=== PATIENT | female | born 1950 | race Caucasian/White ===

== ENCOUNTER → 2017-06-09 | Outpatient (CLI) | payer MEDICARE, BC ==
--- NOTE | 2017-06-11 09:02 | MM ---
Reason for exam: screening (asymptomatic). Last mammogram was performed 1 year and 10 months ago. History: Patient is postmenopausal. Benign excisional biopsy of the right breast, February 26, 1999. Took estrogen for 3 years beginning at age 51. Physical Findings: A clinical breast exam by your physician is recommended on an annual basis and results should be correlated with mammographic findings. MG Screening Mammo w CAD Bilateral CC and MLO view(s) were taken. Prior study comparison: August 02, 2015, bilateral MG screening mammo w CAD. December 16, 2013, bilateral digital screening mammo w/CAD. There are scattered fibroglandular densities. No significant changes when compared with prior studies. ASSESSMENT: Negative, BI-RAD 1 RECOMMENDATION: Routine screening mammogram of both breasts in 1 year.
== END ==
LOC: RADMAMWWP 14:38
PROVIDERS: ATTEND Obstetrics & Gynecology
DX: Z12.31 Encounter for screening mammogram for malignant neoplasm of breast (principal)

== ENCOUNTER → 2018-09-09 | Outpatient (CLI) | payer MEDICARE, BC ==
--- NOTE | 2018-09-09 14:05 | BD ---
EXAMINATION TYPE: Axial Bone Density DATE OF EXAM: 09/09/2018 COMPARISON: NONE CLINICAL HISTORY: Height: 61 Weight: 177.3 FRAX RISK QUESTIONS: Alcohol (3 or more units per day): no Family History (Parent hip fracture): no Glucocorticoids (More than 3mos): no (Ex: prednisone, prednisolone, methylprednisolone, dexamethasone, and hydrocortisone). History of Fracture in Adulthood: yes Secondary Osteoporosis: 1. Type 1 Diabetes: no 2. Hyperthyroidism: no 3. Menopause before 45: no 4. Malnutrition: no 5. Chronic liver disease: no Rheumatoid Arthritis: no Current Tobacco Use: yes RISK FACTORS HISTORY OF: fx right wrist- as a child Surgery to Spine/Hip(right/left)/Wrist (right/left): bilateral hip replacements Family History of Osteoporosis: no Active: yes Diet low in dairy products/other sources of calcium: no Postmenopausal woman: around age 47 Lost more than 2 inches in height since high school: no Frequent falls: no MEDICATIONS: blood pressure, cholesterol Additional History: EXAM MEASUREMENTS: Bone mineral densitometry was performed using the [employer] System. Bone mineral density as measured about the Lumbar spine is: ----- L1-L4(G/cm2): 1.471 T Score Values are as follows: ----- L2: 0.2 ----- L3: 2.5 ----- L4: 5.9 ----- L1-L4: 2.4 Bone mineral density has: increased 14.3 % since study of: 12.16.2013 Bone mineral density about the R Wrist (g/cm2): 0.567 T Score values are as follows: -----Dist. R+U: -0.2 -----Prox. R+U: -1.8 -----Radius total: -1.8 Bone mineral density : baseline IMPRESSION: Osteopenia (T Score between -2.5 and -1)In the right wrist. There is slightly increased risk of fracture and the patient may be considered for treatment. Re-Screen 2-5 years. NOTE: T-SCORE=SD OF THE YOUNG ADULT MEAN.
--- NOTE | 2018-09-10 15:33 | MM ---
Reason for exam: screening (asymptomatic). Last mammogram was performed 1 year and 3 months ago. History: Patient is postmenopausal. Benign excisional biopsy of the right breast, February 26, 1999. Took estrogen for 3 years beginning at age 51. Physical Findings: A clinical breast exam by your physician is recommended on an annual basis and results should be correlated with mammographic findings. MG 3D Screening Mammo W/Cad Bilateral CC and MLO view(s) were taken. Prior study comparison: June 09, 2017, bilateral MG screening mammo w CAD. August 02, 2015, bilateral MG screening mammo w CAD. Finding: There are grouped/clustered fine calcifications in the middle position of the left breast on CC view, 6cm from the nipple. New finding since June 09, 2017 and August 02, 2015. ASSESSMENT: Incomplete: need additional imaging evaluation, BI-RAD 0 RECOMMENDATION: Special view mammogram of the left breast. [facility] will attempt to contact patient to return for supplemental views.
== END | disposition home or self-care (01) ==
LOC: RADMAMWWP 08:12
PROVIDERS: ATTEND Internal Medicine Geriatric Medicine
DX: Z12.31 Encounter for screening mammogram for malignant neoplasm of breast (principal); M85.88 Other specified disorders of bone density and structure, other site
CPT/HCPCS: 77063; 77067; 77080

== ENCOUNTER → 2018-10-07 | Outpatient (CLI) | payer MEDICARE, BC ==
--- NOTE | 2018-10-09 16:30 | MM ---
Reason for exam: additional evaluation requested from prior study. Last mammogram was performed 1 month ago. History: Patient is postmenopausal. Benign excisional biopsy of the right breast, February 26, 1999. Took estrogen for 3 years beginning at age 51. Physical Findings: Nurse did not find any significant physical abnormalities on exam. MG 3D Work Up W/Cad LT CC with magnification, LM with magnification, and LM view(s) were taken of the left breast. Prior study comparison: September 09, 2018, bilateral MG 3d screening mammo w/cad. June 09, 2017, bilateral MG screening mammo w CAD. Chronic nodularity left breast. No distinct suspicious groups of calcifications persists on additional views. These results were verbally communicated with the patient and result sheet given to the patient on 10/07/18. ASSESSMENT: Negative, BI-RAD 1 RECOMMENDATION: Return to routine screening mammogram schedule for both breasts.
== END | disposition home or self-care (01) ==
LOC: RADMAMWWP 08:14
PROVIDERS: ATTEND Internal Medicine Geriatric Medicine
DX: R92.8 Other abnormal and inconclusive findings on diagnostic imaging of breast (principal)
CPT/HCPCS: 77065; G0279; 77061

== ENCOUNTER → 2019-08-10 | Outpatient (CLI) | payer MEDICARE, BC ==
--- NOTE | 2019-08-10 10:57 | US ---
EXAMINATION TYPE: US venous doppler duplex LE LT DATE OF EXAM: 08/10/2019 10:34 AM COMPARISON: NONE CLINICAL HISTORY: I80.9 Phlebitis and thrombophlebitis of unspecifie. Left leg swelling SIDE PERFORMED: left TECHNIQUE: The lower extremity deep venous system is examined utilizing real time linear array sonog nader with graded compression, doppler sonography and color-flow sonography. VESSELS IMAGED: External Iliac Vein (EIV) Common Femoral Vein Deep Femoral Vein Greater Saphenous Vein * Femoral Vein Popliteal Vein Small Saphenous Vein * Proximal Calf Veins (* superficial vessels) Grayscale, color doppler, spectral doppler imaging performed of the deep veins of the left lower extr emity There is normal flow, compressibility, vascular waveforms. Left Leg: No evidence of DVT IMPRESSION: No sonographic evidence of deep venous thrombosis within the left lower extremity.
== END | disposition home or self-care (01) ==
LOC: RADUSWWP 09:55
PROVIDERS: ATTEND Orthopaedic Surgery Sports Medicine
DX: M17.12 Unilateral primary osteoarthritis, left knee (principal); I80.9 Phlebitis and thrombophlebitis of unspecified site; R60.1 Generalized edema

== ENCOUNTER → 2019-10-05 | Outpatient (CLI) | payer BC, MEDICARE ==
--- NOTE | 2019-10-06 10:59 | MM ---
Reason for exam: screening (asymptomatic). Last mammogram was performed 1 year ago. History: Patient is postmenopausal. Benign excisional biopsy of the right breast, February 26, 1999. Took estrogen for 3 years beginning at age 51. Physical Findings: A clinical breast exam by your physician is recommended on an annual basis and results should be correlated with mammographic findings. MG Screening Mammo w CAD Bilateral CC and MLO view(s) were taken. Prior study comparison: October 07, 2018, left breast MG 3d work up w/cad LT. September 09, 2018, bilateral MG 3d screening mammo w/cad. There are scattered fibroglandular densities. There is no discrete abnormality. ASSESSMENT: Negative, BI-RAD 1 RECOMMENDATION: Routine screening mammogram of both breasts in 1 year.
== END | disposition home or self-care (01) ==
LOC: RADMAMWWP 08:36
PROVIDERS: ATTEND Internal Medicine Geriatric Medicine
DX: Z12.31 Encounter for screening mammogram for malignant neoplasm of breast (principal)
CPT/HCPCS: 77067

== ENCOUNTER → 2021-03-21 | Outpatient (CLI) | payer MEDICARE ==
--- NOTE | 2021-03-21 12:44 | XR ---
Lumbar spine HISTORY: Spinal stenosis, M 48.07 3 views of the lumbar spine, no comparisons There is an anterolisthesis grade 1 at L4-5, L3-4, accentuated lordosis is present. Loss of disc heig ht is greatest at L3-4 but also present L2-3, L4-5 with associated vacuum phenomenon. There is multil evel spondylosis. Bone mineralization is reduced. Sclerosis is present in the posterior elements. Pos top changes noted in the hips. There is a spinal curvature present. Lumbar vertebral bodies show pres erved height. IMPRESSION: Degenerative disc disease, facet arthropathy, scoliosis, multilevel spondylolisthesis, lo w bone mineralization. There may be underlying spinal stenosis.
== END | disposition home or self-care (01) ==
LOC: RADXRMAIN 10:03
PROVIDERS: ATTEND Internal Medicine Geriatric Medicine
DX: M48.061 Spinal stenosis, lumbar region without neurogenic claudication (principal); M51.36 Other intervertebral disc degeneration, lumbar region; M47.816 Spondylosis without myelopathy or radiculopathy, lumbar region; M43.16 Spondylolisthesis, lumbar region; M41.86 Other forms of scoliosis, lumbar region
CPT/HCPCS: 72100

== ENCOUNTER → 2021-04-18 | Outpatient (CLI) | payer MEDICARE ==
--- NOTE | 2021-04-18 21:49 | MR ---
EXAMINATION TYPE: MR lumbar spine wo con DATE OF EXAM: 04/18/2021 COMPARISON: Plain films 03/21/2021 HISTORY: Low back pain into right leg for 6 months. CONTRAST: 0 mL intravenous Gadavist. TECHNIQUE: Multiplanar, multisequence images of the lumbar spine were acquired. FINDINGS: Cord terminates at the T12 level. L5-S1: No significant disc bulge or disc herniation. No spinal canal stenosis. No foraminal stenosi s. Facet degenerative changes present. L4-L5: There is a grade 1 spondylolisthesis. Marked facet hypertrophy is present especially on the ri ght with lateral thecal sac compression. In conjunction with the disc bulge and this is contributing to spinal canal stenosis. Disc level is narrowed. There is severe right foraminal stenosis. Moderate left foraminal stenosis is present. L3-L4: There is loss of disc height at this level. There is severe narrowing of the AP dimension kishan uring 0.6 cm. Posterior lateral thecal sac compression is present. Marked facet hypertrophy. Severe r ight and left foraminal stenosis is present. L2-L3: There is loss of disc height to this level. Endplate changes are present. Facet hypertrophy is present with a moderately prominent thecal sac compression from the left. Recess stenosis is present on the left. Severe left foraminal stenosis is present. No AP spinal canal stenosis is present. L1-L2: Mild disc bulge is present. Mild facet hypertrophy is present. No spinal canal stenosis is pre sent. Neural foramen are patent. T12-L1: No significant disc bulge or disc herniation. No spinal canal stenosis. No foraminal stenos is. Mild facet hypertrophy is present. IMPRESSION: 1. Spinal canal stenosis L4-5 secondary to disc uncovering and marked right facet hypertrophy. Severe right foraminal stenosis present at this level. 2. Severe spinal canal stenosis secondary to central disc bulge and marked facet hypertrophy. Severe foraminal stenosis is present. 3. Facet hypertrophy with a moderately large left posterior lateral thecal sac compression from the f acet. This is continue routine to severe left foraminal stenosis. 4. Mild disc bulge at L1-2. 5. Mild facet hypertrophy T12-L1. 6. Grade 1 spondylolisthesis of L4 anterior to L5. Disc uncovering is present.
== END | disposition home or self-care (01) ==
LOC: RADMRIMAIN 15:58
PROVIDERS: ATTEND Internal Medicine Geriatric Medicine
DX: M48.061 Spinal stenosis, lumbar region without neurogenic claudication (principal); M51.26 Other intervertebral disc displacement, lumbar region; M43.16 Spondylolisthesis, lumbar region
CPT/HCPCS: 72148

== ENCOUNTER → 2021-05-15 | Outpatient (CLI) | payer MEDICARE ==
--- NOTE | 2021-05-15 15:38 | BD ---
EXAMINATION TYPE: Axial Bone Density DATE OF EXAM: 05/15/2021 COMPARISON: 09.09.2018 DEXA bone scan CLINICAL HISTORY: 71 YR OLD FEMALE.....ICD-10 CODE: M81.0 OSTEOPOROSIS Height: 60 Weight: 164 FRAX RISK QUESTIONS: Glucocorticoids (More than 3mos): YES (Ex: prednisone, prednisolone, methylprednisolone, dexamethasone, and hydrocortisone). 3. Menopause before 45: AT AGE 47 Current Tobacco Use: YES RISK FACTORS HISTORY OF: Hip SURGERY......BILAT THRs History of Wrist Fracture: RT WRIST When: CHILD Postmenopausal woman: AT AGE 47, Lost more than 2 inches in height since high school: YES Hyperparathyroidism: NO Adrenal Insufficiency: NO MEDICATIONS: Prednisone or other steroids: YES, FOR HER BACK TROUBLE, AND PAIN Additional Medications: BP MEDS, STATIN FOR CHOLESTEROL, PAIN MEDS, NSAIDS Additional History: HYPERTENSION, CHOLESTEROL, LOWER BACK PAIN, EXAM MEASUREMENTS: Bone mineral densitometry was performed using the [employer] System. Bone mineral density as measured about the Lumbar spine is: ----- L1-L4(G/cm2): 1.344 T Score Values are as follows: ----- L1: 0.7 ----- L2: 0.4 ----- L3: -0.3 ----- L4: 4.7 ----- L1-L4: 1.4 Bone mineral density has: Decreased -10.6% SINCE: 09.09.2018 STUDY BILAT THRs Bone mineral density about the L Wrist (g/cm2): 0.550 T Score values are as follows: -----Dist. R+U: -0.5 -----Prox. R+U: -1.2 -----Radius total: -2.0 Bone mineral density FIRST LT FOREARM SCAN, 2018 TECH DID RT WRIST, HX OF RT WRIST FX A YOUTH ....DID NOT DO RT WRIST TODAY IMPRESSION: Osteopenia (T Score between -2.5 and -1) in the wrist redemonstrated. There remains slightly increased risk of fracture and the patient may be considered for treatment. Re-Screen 2-5 years. NOTE: T-SCORE=SD OF THE YOUNG ADULT MEAN.
--- NOTE | 2021-05-16 11:12 | MM ---
Reason for exam: screening (asymptomatic). Last mammogram was performed 1 year and 7 months ago. History: Patient is postmenopausal. Benign excisional biopsy of the right breast, February 26, 1999. Took estrogen for 3 years beginning at age 51. Physical Findings: A clinical breast exam by your physician is recommended on an annual basis and results should be correlated with mammographic findings. MG Screening Mammo w CAD Bilateral CC and MLO view(s) were taken. Prior study comparison: October 05, 2019, bilateral MG screening mammo w CAD. October 07, 2018, left breast MG 3d work up w/cad LT. There are scattered fibroglandular densities. There is chronic nodularity in the left breast. No significant changes when compared with prior studies. ASSESSMENT: Benign, BI-RAD 2 RECOMMENDATION: Routine screening mammogram of both breasts in 1 year.
== END | disposition home or self-care (01) ==
LOC: RADBDWWP 13:19
PROVIDERS: ATTEND Internal Medicine Geriatric Medicine
DX: Z12.31 Encounter for screening mammogram for malignant neoplasm of breast (principal); Z78.0 Asymptomatic menopausal state; Z13.820 Encounter for screening for osteoporosis; M85.80 Other specified disorders of bone density and structure, unspecified site
CPT/HCPCS: 77067; 77080

== ENCOUNTER → 2021-05-16 | Outpatient (CLI) | payer MEDICARE ==
--- NOTE | 2021-05-16 10:25 | CT ---
EXAMINATION TYPE: CT lumbar spine wo con DATE OF EXAM: 05/16/2021 9:48 AM COMPARISON: None HISTORY: Lumbar stenosis CT DLP: 921 mGycm Automated exposure control for dose reduction was used. Unenhanced CT of the lumbar spine was performed. Bone and soft tissue window settings are submitted as well as coronal and sagittal reconstructions. L1-L2: Normal disc space height. No disc herniation protrusion or central stenosis. No facet joint arthropathy. No evidence for foraminal encroachment. L2-L3: Severe degenerative disc disease with severe endplate sclerosis. Vacuum disc noted. Posterior disc bulge with partial encapsulating spur. Facet joint arthropathy and hypertrophy of the ligamentum flavum resulting in moderate central stenosis. L3-L4: Vacuum disc noted. Grade 1 anterolisthesis L3 on L4 of 4 mm. Posterior disc bulge. Hypertrophy of the ligamentum flavum and facet joint arthropathy resulting in severe central stenosis. L4-L5: Vacuum disc noted. Grade 1 anterolisthesis L4 and L5 of 4 mm. Posterior disc bulge. Hypertroph y of the ligamentum flavum and facet joint arthropathy resulting in severe central stenosis. L5-S1: Normal disc space height. No disc herniation protrusion or central stenosis. No facet joint arthropathy. No evidence for foraminal encroachment. IMPRESSION: Severe degenerative disc disease with multilevel central stenosis.
--- NOTE | 2021-05-16 10:56 | XR ---
EXAM TYPE: LUMBAR SPINE X RAY SERIES COMPARISON: NONE HISTORY: Pain TECHNIQUE: 6 views are submitted including flexion-extension lateral views. FINDINGS: Alignment is anatomic. The pedicles are intact. The transverse processes are intact. There is a sc oliotic cysts with multilevel severe degenerative disc disease and grade 1 anterolisthesis L3 on L4 a nd L4 on L5. Multilevel severe facet arthropathy. Anterolisthesis persist on flexion and extension vi ews. IMPRESSION: 1. Scoliosis with severe multilevel degenerative disc disease and facet arthropathy. Suspect multilev el foraminal encroachment and canal stenosis. 2. Grade 1 anterolisthesis L3 on L4 and L4 on L5 is similar in appearance on both flexion and extensi on views.
--- NOTE | 2021-05-16 11:01 | XR ---
EXAMINATION TYPE: XR scoliosis survey DATE OF EXAM: 05/16/2021 COMPARISON: NONE HISTORY: Pain TECHNIQUE: 3 views submitted FINDINGS: There is a scoliotic curvature of the thoracolumbar spine with estimated measurement of 21 degrees. Severe degenerative disc disease and hypertrophic spurring at all levels. Pedicles are intac t. Visualized lung vigil clear. IMPRESSION: 1. Scoliosis measuring 21 degrees with severe degenerative disc disease at all levels.
== END | disposition home or self-care (01) ==
LOC: RADCTMAIN 09:22
PROVIDERS: ATTEND Neurological Surgery
DX: M48.061 Spinal stenosis, lumbar region without neurogenic claudication (principal); M51.36 Other intervertebral disc degeneration, lumbar region; M43.16 Spondylolisthesis, lumbar region; M41.9 Scoliosis, unspecified
CPT/HCPCS: 72082; 72114; 72131

== ENCOUNTER → 2023-09-08 | Outpatient (CLI) | payer MEDICARE ==
--- NOTE | 2023-09-09 12:03 | MM ---
Reason for Exam: Screening (asymptomatic). Last mammogram was performed 1 year(s) and 4 month(s) ago. Patient History: Menarche at age 15. First Full-Term at age 30. Postmenopausal. Estrogen for 3 years from age 51 until age 54. 02/26/1999, Benign Excisional Biopsy on the right side. Risk Values: Gillian 5 year model risk: 2.3%. NCI Lifetime model risk: 6.3%. Prior Study Comparison: 10/05/2019 Bilateral Screening Mammogram, [facility]. 05/15/2021 Bilateral Screening Mammogram, [facility]. 05/19/2022 Bilateral MG 3D screening mammo w/cad, [facility]. Tissue Density: The breast tissue is heterogeneously dense. This may lower the sensitivity of mammography. Findings: Analyzed By CAD. There is no suspicious group of microcalcifications or new suspicious mass in either breast. Overall Assessment: Benign, BI-RAD 2 Management: Screening Mammogram of both breasts in 1 year. . Patient should continue monthly self-breast exams. A clinical breast exam by your physician is recommended on an annual basis. This exam should not preclude additional follow-up of suspicious palpable abnormalities. Note on Gillian scores and lifetime risk: 1. A Gillian score greater than 3% is considered moderate risk. If this is the case, consider specialist referral to assess eligibility for a risk reducing agent. 2. If overall lifetime risk for the development of breast cancer is 20% or higher, the patient may qualify for future screening with alternating mammogram and breast MRI. Electronically signed and approved by: Michael Bowens M.D. Radiologis
== END | disposition home or self-care (01) ==
LOC: RADMAMWWP 09:21
PROVIDERS: ATTEND Internal Medicine Geriatric Medicine
DX: Z12.31 Encounter for screening mammogram for malignant neoplasm of breast (principal); Z78.0 Asymptomatic menopausal state
CPT/HCPCS: 77063; 77067

== ENCOUNTER → 2023-09-17 | Outpatient (CLI) | payer MEDICARE | END | disposition home or self-care (01) | LOC: RADBDWWP 07:51 | PROVIDERS: ATTEND Internal Medicine Geriatric Medicine | DX: Z53.9 Procedure and treatment not carried out, unspecified reason (principal) ==

== ENCOUNTER → 2024-10-24 | Outpatient (CLI) | payer MEDICARE ==
--- NOTE | 2024-10-24 10:19 | MM ---
Reason for Exam: Screening (asymptomatic). Last mammogram was performed 1 year(s) and 1 month(s) ago. Patient History: Menarche at age 15. First Full-Term at age 30. Postmenopausal. Estrogen for 3 years from age 51 until age 54. 02/26/1999, Benign Excisional Biopsy on the right side. Risk Values: Gillain 5 year model risk: 2.3%. NCI Lifetime model risk: 6.0%. Prior Study Comparison: 05/15/2021 Bilateral Screening Mammogram, [facility]. 05/19/2022 Bilateral MG 3D screening mammo w/cad, [facility]. 09/08/2023 Bilateral MG 3D screening mammo w/cad, [facility]. Tissue Density: The breasts are almost entirely fatty. Findings: Analyzed By CAD. Right breast: There is no suspicious group of microcalcifications or new suspicious mass. Left breast: There is no suspicious group of microcalcifications or new suspicious mass. Overall Assessment: Negative, BI-RAD 1 Management: Screening Mammogram of both breasts in [address] [facility] will attempt to contact patient to return for supplemental views and ultrasound if indicated. Patient should continue monthly self-breast exams. A clinical breast exam by your physician is recommended on an annual basis. This exam should not preclude additional follow-up of suspicious palpable abnormalities. Note on Gillian scores and lifetime risk: 1. A Gillian score greater than 3% is considered moderate risk. If this is the case, consider specialist referral to assess eligibility for a risk reducing agent. 2. If overall lifetime risk for the development of breast cancer is 20% or higher, the patient may qualify for future screening with alternating mammogram and breast MRI. [facility], , 10/24/2024 10:16 AM. Electronically signed and approved by: Dale Montalvo DO
== END | disposition home or self-care (01) ==
LOC: RADMAMWWP 09:26
PROVIDERS: ATTEND Internal Medicine Geriatric Medicine
DX: Z12.31 Encounter for screening mammogram for malignant neoplasm of breast (principal); Z78.0 Asymptomatic menopausal state
CPT/HCPCS: 77063; 77067